=== PATIENT | male | born 1955 | race Caucasian/White ===

== ENCOUNTER 2021-08-02 09:49 | Outpatient (CLI) | payer MEDICARE, SELFPAY ==
[2021-08-02 10:16] VITALS: BP 151/75; PULSE 78; RESP 16; TEMP 36.3; O2SAT 98; BMI 28.7
[2021-08-02 10:48] VITALS: BP 111/74; PULSE 70; RESP 16; TEMP 36.7; O2SAT 98
[2021-08-02] MEDS: 0.9% Saline Lock 10 ML Syringe IV (10:48)
[2021-08-02 11:38] VITALS: BP 139/91; PULSE 78; RESP 16; TEMP 36.6
== END 2021-08-02 11:48 | disposition home or self-care (01) ==
LOC: MS3OUT 09:53 → MS3 09:53
PROVIDERS: PCP Family Medicine; Referring Provider Nurse Practitioner Adult Health; Visit Provider Nurse Practitioner Adult Health
DX: U07.1 COVID-19 (principal)
CPT/HCPCS: J7050; M0245; Q0245; A4216

== ENCOUNTER 2023-08-18 16:05 | Emergency (ER) | payer MEDICARE, SELFPAY ==
[2023-08-18 16:06] VITALS: BP 143/101; PULSE 61; RESP 16; TEMP 36; O2SAT 98; BMI 31.7
--- NOTE | 2023-08-18 16:31 | CT_ITS ---
INDICATION: Trauma, hit head with dizziness, blood thinner treatment EXAMINATION: CT BRAIN - CT Head or Brain W/O Contrast Injection TECHNIQUE: Multiple axial images were obtained of the head without intravenous contrast. A radiation dose optimization technique was used for this scan. IV Contrast dosage and agent: None. COMPARISON: None. FINDINGS: BRAIN PARENCHYMA: No intra- or extra-axial hemorrhage. No evidence of acute infarct. No intracranial mass or mass effect. Volume loss with low attenuation of the periventricular white matter typical of chronic small vessel disease. Posterior fossa structures are unremarkable. CSF SPACES: Appropriate for age. No hydrocephalus. Basal cisterns are patent. CALVARIUM, SKULL BASE, PARANASAL SINUSES AND MASTOID AIR CELLS: Scattered mucoperiosteal thickening. No acute fracture. ORBITS: Both globes, extraocular muscles, optic nerves and retrobulbar fat appear unremarkable. CT/Brain/Head without Contrast IMPRESSION: No acute intracranial findings. Electronically Signed: Geovanny Desouza MD at 17:16 EST ,
--- NOTE | 2023-08-18 16:33 | EDS_ITS ---
HPI History of Present Illness Chief Complaint: Head Injury Informant: patient and spouse/S.O. Narrative Narrative: Patient presents after head injury. About a week ago patient walked into a firmly mounted ductwork in a basement. He states he did hit it very hard. He did not lose consciousness and fall though. At that time he was doing okay. He has a little soreness in the area. But a day or 2 later he started to get vertigo. He states he only gets vertigo if he looks up or down with extremes. He can look [id number]. He has a history of vertigo and has had this before. He is actually still driving with it. He states if he takes meclizine he just plain gets tired so he does not like that. He states he is fully functional. He talked to his physician and saw him today. Since this patient hit his head and has vertigo and is on Eliquis they recommended CAT scan which is certainly appropriate. [facility] Medical History Afib HTN (hypertension) Hyperlipidemia Home Medications amlodipine 5 mg tablet (Norvasc) 5 mg PO DAILY 08/02/21 [History Last Taken Unk nown] apixaban 5 mg tablet (Eliquis) 5 mg PO BID 08/02/21 [History Last Taken Unknown] aspirin 81 mg capsule 81 mg PO DAILY 08/02/21 [History Last Taken Unknown] betaxolol 10 mg tablet 10 mg PO DAILY 08/02/21 [History Last Taken Unknown] pantoprazole 20 mg tablet,delayed release 20 mg PO DAILY 08/02/21 [History Last Taken Unknown] meclizine 25 mg tablet 25 mg PO TID PRN dizziness #20 tabs 08/18/23 [Rx Last Taken Unknown] Allergy/AdvReac Type Severity Reaction Status Date / Time methocarbamol [From Robaxin] Allergy Severe Anaphylaxis Verified 08/18/23 16:10 Iodinated Contrast Media Allergy Intermediate Hives Verified 08/18/23 16:10 Sulfa (Sulfonamide Allergy Intermediate Hives Verified 08/18/23 16:10 Antibiotics) Social History Smoking Status: Never smoker ROS ROS ED Constitutional Constitutional ED: Denies chills or fever(s) ENT ENT ED: Reports other Details: Patient got a minimal abrasion of the top of his scalp. Cardiovascular Cardiovascular: Denies chest pain, palpitations or racing heartbeat Gastrointestinal Gastrointestinal: Denies nausea or vomiting Musculoskeletal Musculoskeletal: Denies back pain or neck pain Integumentary Denies rash Neurologic Neurologic: Reports other Details: See history of present illness ; Denies headache(s), paresthesias or weakness Endocrine Endocrinology: Denies polydipsia or polyuria Hematologic/Lymphatic Hematologic/Lymphatic: Reports easy bleeding and easy bruising Allergic/Immunologic Allergic/Immunologic ED: Denies urticaria EXAM Physical Exam Narrative Exam Narrative: General: Patient is awake alert appropriate no acute distress. He is acting normally per his . HEENT: There is a minimal area of abrasion on top of his head. It is really just a red area and it does not actually break the skin. No hematoma. Eye is: Pupils are normal and reactive. No photophobia. Range of motion is normal. Neck is supple. No tenderness. If he looks all the way down or up he does get a little bit of vertigo but it resolves very quickly for him. Lungs are clear. Heart is regular. It actually sounds sinus at this time. Rate is only about 70. Abdomen is soft nontender. Neurologically is awake alert appropriate. No discoordination. Const Vital Signs: 08/18/23 16:06 08/18/23 16:25 Temperature 96.8 F L Temperature Source Temporal Pulse Rate 61 Respiratory Rate 16 Respiratory Effort Normal Non-Labored Respiratory Depth Normal Respiratory Pattern Normal Blood Pressure 143/101 H Blood Pressure Mean 115 Pulse Ox 98 Oxygen Delivery Method Room Air Room Air MDM MDM MDM Narrative Medical decision making narrative: My independent interpretation of the patient's CT scan of the head without contrast shows no sign of bleeding or acute trauma. Final reading is negative. Patient is up walking around without difficulty. He states he would try some meclizine especially when he is at home. I think is reasonable we get him home at this time. He and his would like that. We discussed reasons to return. Radiography Diagnostic Testing: Clinical Impression(s) from Imaging Studies Brain CT 08/18/23 16:31 IMPRESSION: No acute intracranial findings. Electronically Signed: Geovanny Desouza MD at 17:16 EST Reading Location ID and State: [facility] / [place] Tel , Service support , Discharge Plan Triage Chief Complaint: Head Injury ED Provider: Rayo Ronquillo Dx/Rx/DC Orders Clinical Impression: Medication induced coagulopathy, Vertigo, Head injury Instructions: ED Head Injury (Adult), ED Vertigo, Unspecified Prescriptions: New meclizine 25 mg tablet 25 mg PO TID PRN (Reason: dizziness) Qty: 20 0RF No Action amlodipine [Norvasc] 5 mg Tablet 5 mg PO DAILY pantoprazole 20 mg Tablet,Delayed Release (Dr/Ec) 20 mg PO DAILY betaxolol [Kerlone] 10 mg Tablet 10 mg PO DAILY Eliquis 5 mg Tablet 5 mg PO BID aspirin 81 mg Capsule 81 mg PO DAILY Primary Care Provider: Adryan Negro Referrals: Adryan Negro MD [Primary Care Provider] - 3-5 Days if not improving Disposition Disposition: Home, Self Care
[2023-08-18 17:47] VITALS: BP 139/99; PULSE 69; RESP 18; O2SAT 99
== END 2023-08-18 17:48 | disposition home or self-care (01) ==
PROVIDERS: Emergency Provider Emergency Medicine; PCP Family Medicine; Visit Provider Emergency Medicine
DX: S00.01XA Abrasion of scalp, initial encounter (principal); I48.91 Unspecified atrial fibrillation; W22.09XA Striking against other stationary object, initial encounter; Y92.89 Other specified places as the place of occurrence of the external cause; I10 Essential (primary) hypertension; R42 Dizziness and giddiness; R79.1 Abnormal coagulation profile; Z79.01 Long term (current) use of anticoagulants; Z79.82 Long term (current) use of aspirin; Z79.899 Other long term (current) drug therapy
CPT/HCPCS: 70450; 99282